=== PATIENT | female | born 2000 | race Caucasian/White ===

== ENCOUNTER 2019-12-02 18:05 | Observation (INO) | payer MEDICAID ==
[~2019-12-02] VITALS: Ht 167.6 cm; Wt 145.0 kg
[~2019-12-02 18:05] MED LIST: IBU600 MG PO; IBU800 M1 PO; IRON325 MG PO; MACROBID 1100 MG/CAP PO; NAPROXEN 3375 MG/TAB PO; NO HOME MEDICATIONS; OMNICEF 300MG300 MG PO; PRENATAL1 TA7 PO; ZOLOFT 100MG100 MG PO; ZOLOFT 50MG50 MG PO
[2019-12-02] MEDS ORDERED: PRENATAL TABLET PO (18:09)
[2019-12-02] MEDS ORDERED: ZOLOFT 50MG50 MG PO (18:09)
[2019-12-02 23:15] VITALS: BP 114/67; PULSE 78; TEMP 97.5
--- NOTE | 2019-12-02 23:15 | NUR ---
To room 349 via bed from PACU. Admission assessment complete. + movement. VS stable. Left upper extremity dressing-splint, gauze and kiki-CDI. Elevated on pillows. Clear liquid diet provided. Denies nausea/shortness of breath/pain. CMS intact. Plan of care discussed for this shift to inlcude pain control and calling for questions or concerns. Verbalizes understanding. Call light in reach. Will monitor.
[2019-12-02 23:30] VITALS: BP 110/69; PULSE 82
[2019-12-02 23:45] VITALS: BP 112/67; PULSE 79; TEMP 97.8
[2019-12-02 23:56] VITALS: BP 114/67; PULSE 68; TEMP 97.8
[2019-12-03] VITALS (7 sets, daily range): BP systolic 91–115; BP diastolic 43–67; PULSE 61–80; TEMP 97.8–98.4
--- NOTE | 2019-12-03 08:00 | NUR ---
PATIENT IS ORIENTED BUT DROWSY. VSS. DESCRIBES PAIN IN RUE MILD AT REST. RUE DRESSING IS CD&I WITH HARD-CAST/ACEWRAP. PATIENT IS ABLE TO MOVE FINGERS TO LUE AND HAS GOOD CMS. PATIENT IS 28 WEEKS AND REPORTS SHE WAS OPENING A BOX WITH A KNIFE WHEN SHE ACCIDENTLY CUT HER LEFT RADIAL ARTERY. PATIENT TO DISCHARGE HOME LATER THIS AM WITH F/U APT WITH . NO OTHER NEEDS. PATIENT SLEEPING.
--- NOTE | 2019-12-03 09:50 | NUR ---
PATIENT DISCHARGING HOME VIA AMBULATORY TO PERSONAL VEHICLE WITH SPOUCE. GAVE DISCHARGE INSTRUCTIONS, PRESCRIPTIONS & F/U APT. ANSWERED ALL QUESTIONS/CONCERNS. STUDENT NURSE DC'D IV SITE, COVERED WITH GAUZE & BANDAID. SENT PERSONAL BELONGINGS. PATIENT DISCHARGED.
== END 2019-12-03 09:50 | disposition home or self-care (01) ==
LOC: EDBD 18:05 → COL.ER 18:05 → SURG 23:18
PROVIDERS: ADMIT Plastic Surgery
DX: S65.112A Laceration of radial artery at wrist and hand level of left arm, initial encounter (principal); Z3A.28 28 weeks gestation of pregnancy; W26.0XXA Contact with knife, initial encounter; Y93.89 Activity, other specified; O99.343 Other mental disorders complicating pregnancy, third trimester; Z79.899 Other long term (current) drug therapy; O71.89 Other specified obstetric trauma
CPT/HCPCS: G0378; J0690; J1885; J2704; J3010; J7120

== ENCOUNTER 2020-01-25 04:18 | Outpatient (CLI) | payer MEDICAID ==
[~2020-01-25] VITALS: Ht 167.6 cm; Wt 75.0 kg
[~2020-01-25 04:18] MED LIST changes: +PRENATAL TABLET PO
--- NOTE | 2020-01-25 04:18 | NUR ---
0418- PT PRESENTS TO LDR COMPLAINING OF PELVIC AND BACK PAIN, AMBULATORY TO ROOM LR5, CHANGED INTO GOWN. 0429- EFM X2 APPLIED. PT DENIES CONTRACTIONS, LEAKING FLUID, VAGINAL BLEEDING. STATES SHE IS FEELING BABY MOVE AND IS HAVING CONSTANT BACK PAIN AND CRAMPING DOWN LOW IN HER PELVIS. PT STATES SHE IS UNCOMFORTABLE, BUT IS TALKING AND TEXTING ON HER PHONE CONSTANTLY WITH NO EXPRESSIONS OF PAIN. 0433- SVE BY THIS NURE . PLAN OF CARE DISCUSSED TO CALL DR WITH FURTHER ORDERS. PT QUESTIONS ANSWERED. 0515- DR HUNTER CALLED AND UPDATED ON PT HISTORY, COMPLAINTS, SVE, STRIP INTERPRETATION, AND PT COMFORT LEVEL. ORDERS RECEIVED FOR UA. AND DISMISS TO HOME IF UA IS OK. 0515- PT ASSISTED UP TO BATHROOM AND SHE PROVIDES A URINE SAMPLE. PLAN OF CARE DISCUSSED. 0610- PT UPDATED THAT UA LOOKS GOOD AND TAKEN OFF MONITORS FOR DISMISSAL. SHE IS STILL TEXTING ON PHONE AND IN NO APPARENT DISCOMFORT. 0630- DISMISSAL INSTRUCTIONS GIVEN. PT VERBALIZES UNDERSTANDING. PT DISMISSED TO HOME AMBULATORY BY SELF.
[2020-01-25 05:00] VITALS: BP 110/66; PULSE 86; TEMP 98.7
[2020-01-25 05:46] LABS: COLLECTION METHOD CLEAN CATCH
[2020-01-25 06:02] LABS: MUCOUS Present /lpf; PH 7 (5-8); SQUAMOUS EPITHELIAL 0-2 /hpf; URINE APPEARANCE Hazy; URINE BACTERIA None Seen /hpf; URINE BILIRUBIN Negative (NEGATIVE); URINE BLOOD Negative (NEGATIVE); URINE COLOR Yellow; URINE GLUCOSE Negative (NEGATIVE); URINE KETONE Negative (NEGATIVE); URINE LEUKOCYTE ESTERASE Negative (NEGATIVE); URINE NITRATE Negative (NEGATIVE); URINE PROTEIN(semi-quant) Negative (NEGATIVE); URINE RBC 0-2 /hpf; URINE UROBILINOGEN Negative (NEGATIVE); URINE WBC 0-2 /hpf
== END 2020-01-25 06:30 | disposition home or self-care (01) ==
LOC: LDRO 04:18
PROVIDERS: Obstetrics & Gynecology
DX: O26.893 Other specified pregnancy related conditions, third trimester (principal); Z3A.35 35 weeks gestation of pregnancy; M54.9 Dorsalgia, unspecified; R25.2 Cramp and spasm

== ENCOUNTER 2020-02-04 15:53 | Outpatient (CLI) | payer MEDICAID ==
[~2020-02-04] VITALS: Ht 167.6 cm; Wt 75.9 kg
--- NOTE | 2020-02-04 15:55 | NUR ---
Patient arrives ambulatory with complaints of decreased movement since this afternoon. Patient reports normal movement this morning. Denies contractions or vaginal bleeding. Patient changes into gown, EFM explained and placed. VS obtained. Assessment completed. 1610- Patient requests SVE. SVE unchanged from office. Reactive FHR strip obtained. 1628- Dr Archer notified via natural resource officer. Reviewed FHR strip and patient assessment. Orders to dc home.
[2020-02-04 16:02] VITALS: BP 117/74; PULSE 94; TEMP 98.5
[2020-02-04 16:30] VITALS: BP 117/74; PULSE 94; TEMP 98.5
--- NOTE | 2020-02-04 16:35 | NUR ---
Patient given dc insturctions. Reviewed labor precautions and kick counts. Denies questions. Has appt tomorrow. Leaves ambulatory with mother.
== END 2020-02-04 16:35 | disposition home or self-care (01) ==
LOC: LDRO 15:53 → LDR 15:55 → LDRO 16:35
DX: O36.8130 Decreased fetal movements, third trimester, not applicable or unspecified (principal); Z3A.37 37 weeks gestation of pregnancy
CPT/HCPCS: OP

== ENCOUNTER 2020-02-06 01:05 | Outpatient (CLI) | payer MEDICAID ==
[~2020-02-06] VITALS: Ht 167.6 cm; Wt 75.9 kg
--- NOTE | 2020-02-06 00:42 | NUR ---
0042- PT PRESENTS TO LDR COMPLAINING OF CONTRACTIONS, AMBULATORY TO ROOM LR6, CHANGED INTO GOWN. 0049- EFM X2 APPLIED, PT DENIES LEAKING FLUID OR VAGINAL BLEEDING. STATES SHE FEELS THE BABY MOVE AND HAS BEEN HAVING CONTRACTIONS SINCE HER OFFICE VISIT AND MEMBRANE STRIPPING. 0155- SVE BY THIS NURSE 2-2. PLAN OF CARE FOR LABOR ASSESSMENT DISCUSSED AND QUESTIONS ANSWERED. 0150- PT UP TO BATHROOM. 0155- PT BACK ON MONITORS. STATES HER CONTRACTIONS ARE ABOUT THE SAME. SVE BY THIS NURSE UNCHANGED. PLAN OF CARE DISCUSSED. 0202- DR ALFONSO CALLED AND UPDATED ON PT HISTORY, COMPLAINT, SVE UNCHANGED, VSS, STRIP INTERPRETATION. ORDER FOR DISMISSAL TO HOME. 0205- PT OFF MONITORS FOR DISMISSAL. 0215- DISMISSAL INSTRUCTIONS GIVEN, PT VERBALIZES UNDERSTANDING AND SIGNS PAPERWORK. DISMISSED TO HOME AMBULATORY ACCOMPANIED BY FAMILY MEMBER.
[2020-02-06 01:00] VITALS: BP 118/65; PULSE 85; TEMP 98.4
== END 2020-02-06 02:15 | disposition home or self-care (01) ==
LOC: LDRO 01:05
DX: O62.9 Abnormality of forces of labor, unspecified (principal); Z3A.37 37 weeks gestation of pregnancy

== ENCOUNTER 2020-02-16 11:33 | Outpatient (CLI) | payer MEDICAID ==
[~2020-02-16] VITALS: Ht 167.6 cm; Wt 77.7 kg
--- NOTE | 2020-02-16 11:40 | NUR ---
Pt arrives on unit with mother. States vaginal bleeding/spotting x2 days after sweeping of membranes. Denies LOF and reports GFM. Changed into clean gown. EFM and toco applied. VSS. SVE per this RN 3-4/70/-2 with pink/peach tinged discharge noted on glove. BOWI. Admission assessment completed. Dr. Dugan notified. See physician notification. Pt updated on POC. Bed locked in low position. Call light within reach. No questions or concerns at this time.
[2020-02-16 12:45] VITALS: BP 113/70; PULSE 83; TEMP 98.1
== END 2020-02-16 12:41 | disposition home or self-care (01) ==
LOC: LDR 11:33 → LDRO 11:33
DX: O46.93 Antepartum hemorrhage, unspecified, third trimester (principal); Z3A.38 38 weeks gestation of pregnancy
CPT/HCPCS: OP

== ENCOUNTER → 2020-02-19 | Outpatient (CLI) | payer MEDICAID ==
[~2020-02-19] MED LIST changes: +MOTRIN 800800 MG/TAB PO; +PERCOCET 325 MG1 TA2 PO
== END ==
LOC: COL.LAB 10:00
DX: Z20.828 Contact with and (suspected) exposure to other viral communicable diseases (principal)

== ENCOUNTER 2020-02-21 07:00 | Inpatient (IN) | payer MEDICAID ==
[~2020-02-21] VITALS: Ht 167.6 cm; Wt 77.7 kg
[2020-02-21] VITALS (40 sets, daily range): BP systolic 94–147; BP diastolic 55–87; PULSE 64–100; TEMP 97.8–98.4
--- NOTE | 2020-02-21 05:10 | NUR ---
Patient ambulatory to unit accompanied by spouse. Patient state that at 0445 SROM with clear fluid noted. FHR and contraction monitors placed and explained. Patient denies any covid symptoms or exposure. Was swabbed 2 days ago and notified it was negative. Patient denies any vaginal bleeding and baby has been active. SVE /1, clear fluid noted and amniotest positive.
[2020-02-21 06:14] LABS: BASO # 0.1 (0.0-0.2); BASO % 0.4 % (0.0-2.0); EOS # 0.1 (0.0-0.7); EOS % 0.9 % (0-4.0); GRAN # 9.7 (1.4-6.5); GRAN % 75.7 % (42.2-75.2); HEMATOCRIT 38.8 % (37.0-47.0); HEMOGLOBIN 12.7 g/dl (12.5-16.0); LYMPH # 1.8 (1.2-3.4); LYMPH % 14.2 % (20.0-51.0); MEAN CELL VOLUME 85 fl (80.0-100.0); MEAN CORPUSCULAR HEMOGLOBIN 28 pg (27.0-31.0); MEAN CORPUSCULAR HGB CONC 33 g/dl (33.0-37.0); MEAN PLATELET VOLUME 12.7 fl (7.4-10.4); MONO % 7.7 % (1.7-9.3); PLATELET COUNT 146 K/mm3 (130-400); RED BLOOD COUNT 4.59 M/mm3 (4.10-5.30); REDCELL DISTRIBUTION WIDTH-CV 14.8 % (11.5-14.5)
[~2020-02-21 07:00] MED LIST changes: -MOTRIN 800800 MG/TAB PO; -PERCOCET 325 MG1 TA2 PO
--- NOTE | 2020-02-21 07:15 | NUR ---
0709- RN AT BEDSIDE. PT REQUESTING BIRTHING BALL. ASSISTED PT TO BIRTHING BALL AT THE SIDE OF BED. EFM TRACING INTERMITTENTLY DUE TO MATERNAL POSITIONING. RN REMAINS AT BEDSIDE UNTIL EFM IS TRACING WELL. CALL LIGHT WITHIN REACH.
--- NOTE | 2020-02-21 07:30 | NUR ---
0720- EFM TRACING INTERMITTENTLY. RN AT BEDSIDE READJUSTING. AUDIBLE MOVEMENT NOTED DURING THIS TIME. RN REMAINS AT BEDSIDE UNTIL EFM IS TRACING WELL AGAIN. CALL LIGHT WITHIN REACH.
--- NOTE | 2020-02-21 08:25 | NUR ---
0825- RN AT BEDSIDE WITH PT. PROVIDER TO BEDSIDE. DISCUSSED PLAN AND QUESTIONS ANSWERED. 0830- HELPED PT. TO ROCKING CHAIR. CALL LIGHT WITHIN REACH.
--- NOTE | 2020-02-21 10:01 | NUR ---
0941- RN to bedside. Assisted pt. to the sitting position and got pt and room ready for epidural placement. RN remains at bedside. 0942- Maternal O2 Sat placed. EFM adjusted and tracing intermittently due to maternal positioning. RN remains at bedside. 0950- JIMENA Martinez at the bedside for epidural placement. Discussed procedure and answered questions. 1001- Test dose, see anesthesia record. 1008- Pt. repositioned in bed to WL. Pt. tolerated procedure well. RN remains at bedside. Vitals stable.
--- NOTE | 2020-02-21 12:42 | NUR ---
1234- RN AND PROVIDER TO BEDSIDE FOR SVE. 1235- COMPLETE, PER PROVIDER. PT AND ROOM SET UP FOR DELIVERY. 1240- PT BEGINS PUSHING WITH CONTRACTIONS. 1242- OF VIABLE MALE INFANT. PUT TO MOTHERS CHEST ONCE CRYING AND CORD CUT. NURSERY NURSE ASSUMES CARE AT THIS TIME. PITOCIN STOPPED. 1244- OF PLACENTA. REPAIR MADE, FUNDAS MASSAGED TO FIRM BY RN. PITOCIN STARTED AT 333ML/HR PER PROTOCOL. 1255- PT. CLEANED UP, NEW PAD AND ICE PACK TO PERINEUM. PT AND ROOM CLEANED UP. RECOVERY STARTED. NURSE REMAINS AT BEDSIDE. FUNDUS MASSAGED TO FIRM, SMALL CLOTS NOTED WITH MODERATE AMOUNT OF BLEEDING.
[2020-02-22 03:06] VITALS: BP 97/55; PULSE 69; TEMP 97.8
[2020-02-22] MEDS ORDERED: PERCOCET 325 MG1 TA2 PO (06:45)
[2020-02-22] MEDS ORDERED: MOTRIN 800800 MG/TAB PO (06:45)
[2020-02-22 08:25] VITALS: BP 105/77; PULSE 76; TEMP 97.5
== END 2020-02-22 14:50 | disposition home or self-care (01) | DRG 807 ==
LOC: OB 07:00 → LDR 07:00 → OB 09:51
PROVIDERS: ADMIT Obstetrics & Gynecology
PROC: 10E0XZZ Delivery of Products of Conception, External Approach (ICD-10-PCS; principal; 2020-02-21)
PROC: 0UQMXZZ Repair Vulva, External Approach (ICD-10-PCS; 2020-02-21)
DX: O43.123 Velamentous insertion of umbilical cord, third trimester (principal); Z37.0 Single live birth; O71.82 Other specified trauma to perineum and vulva; Z3A.39 39 weeks gestation of pregnancy
CPT/HCPCS: J2590; J7120

== ENCOUNTER 2020-06-16 11:03 | Emergency (ER) | payer MEDICAID ==
[~2020-06-16] VITALS: Ht 167.6 cm; Wt 68.2 kg
[~2020-06-16 11:03] MED LIST changes: +MOTRIN 800800 MG/TAB PO; +PERCOCET 325 MG1 TA2 PO
[2020-06-16 11:14] VITALS: BP 144/88
[2020-06-16] MEDS ORDERED: AMOXICILLIN 8751 TAB PO (12:39)
[2020-06-16 13:06] VITALS: PULSE 81
== END 2020-06-16 13:06 | disposition home or self-care (01) ==
LOC: COL.ER 11:03
DX: J06.9 Acute upper respiratory infection, unspecified (principal); H66.91 Otitis media, unspecified, right ear; F32.9 Major depressive disorder, single episode, unspecified; Z20.828 Contact with and (suspected) exposure to other viral communicable diseases; Z79.52 Long term (current) use of systemic steroids

== ENCOUNTER 2021-04-12 08:17 | Emergency (ER) | payer MEDICAID ==
[~2021-04-12] VITALS: Ht 167.6 cm; Wt 68.2 kg
[~2021-04-12 08:17] MED LIST changes: +AMOXICILLIN 8751 TAB PO
[2021-04-12 08:23] VITALS: BP 126/65; PULSE 76; TEMP 98.2
== END 2021-04-12 10:32 | disposition home or self-care (01) ==
LOC: COL.ER 08:17
DX: N93.9 Abnormal uterine and vaginal bleeding, unspecified (principal); Z32.02 Encounter for pregnancy test, result negative

== ENCOUNTER 2022-04-17 17:17 | Outpatient (CLI) | payer MEDICAID ==
[~2022-04-17] VITALS: Ht 167.6 cm; Wt 73.6 kg
--- NOTE | 2022-04-17 17:25 | NUR ---
Patient presents to labor and delivery. States feeling decreased movement for a little today. States using a dopler at home and heart rate went down. When ask what the heart rate was, says she didnt look. heart rate at 134s with accelerations noted with no decels.
[2022-04-17 17:30] VITALS: BP 111/68; PULSE 90; TEMP 99.1
[2022-04-17 18:00] VITALS: BP 118/67; PULSE 77
--- NOTE | 2022-04-17 18:15 | NUR ---
Discharge instructions given to patient. Verbalizes understanding. 182 Dismissed to home with mother, alert, ambulatory, stable.
== END 2022-04-17 18:15 | disposition home or self-care (01) ==
LOC: LDRO 17:17
DX: O36.8190 Decreased fetal movements, unspecified trimester, not applicable or unspecified (principal); Z3A.00 Weeks of gestation of pregnancy not specified

== ENCOUNTER 2024-03-22 16:29 | Emergency (ER) | payer SELFPAY ==
[~2024-03-22] VITALS: Ht 170.2 cm; Wt 58.6 kg
[~2024-03-22 16:29] MED LIST changes: +AMOXICILLIN 50500 MG PO; +PRENATAL
[2024-03-22 18:08] LABS: BASO % 0.4 % (0.0-2.0); EOS # 0.1 K/mm3 (0.0-0.7); EOS % 1.1 % (0.0-4.0); GRAN # 4.9 K/mm3 (1.4-6.5); GRAN % 66.3 % (42.2-75.2); HEMATOCRIT 41.3 % (37.0-47.0); HEMOGLOBIN 13.7 g/dl (12.5-16.0); LYMPH # 1.9 K/mm3 (1.2-3.4); LYMPH % 25.2 % (20.0-51.0); MEAN CELL VOLUME 86 fl (80.0-100.0); MEAN CORPUSCULAR HEMOGLOBIN 29 pg (27-31); MEAN CORPUSCULAR HGB CONC 33 g/dl (33.0-37.0); MEAN PLATELET VOLUME 11.6 fl (7.4-10.4); MONO # 0.5 K/mm3 (0.1-0.6); MONO % 6.9 % (1.7-9.3); PLATELET COUNT 253 K/mm3 (130-400); REDCELL DISTRIBUTION WIDTH-CV 12.1 % (11.5-14.5)
[2024-03-22 18:27] LABS: ALBUMIN 3.9 g/dL (3.5-5.0); BILIRUBIN,TOTAL 0.5 mg/dL (0.2-1.2); CALCIUM 10.3 mg/dL (8.4-10.2); CREATININE, serum 0.66 mg/dL (0.57-1.11); TOTAL PROTEIN 7.6 g/dl (6.2-8.1)
[2024-03-22 18:29] LABS: COLLECTION METHOD CLEAN CATCH
[2024-03-22 18:34] LABS: URINE APPEARANCE Cloudy (CLEAR/HAZY)
[2024-03-22 18:35] LABS: URINE BLOOD TRACE-INTACT (NEGATIVE); URINE COLOR YELLOW (YELLOW); URINE GLUCOSE Negative (NEGATIVE); URINE KETONE 1+ (NEGATIVE); URINE NITRATE Negative (NEGATIVE); URINE PROTEIN(semi-quant) TRACE (NEGATIVE)
[2024-03-22 18:50] LABS: POTASSIUM 2.9 mEq/L (3.5-4.5)
[2024-03-22] MEDS ORDERED: NORCO 325 MG-51 TAB PO (19:21)
[2024-03-22 19:26] LABS: URINE BACTERIA MANY /hpf (NONE SEEN)
[2024-03-22 19:41] VITALS: BP 120/82; PULSE 80; TEMP 98.1
[2024-03-22] MEDS ORDERED: CEPHALEXIN500 M1 PO (21:48)
== END 2024-03-22 19:41 | disposition home or self-care (01) ==
LOC: COL.ER 16:29
PROVIDERS: Physician Assistant
DX: O03.4 Incomplete spontaneous abortion without complication (principal); F17.200 Nicotine dependence, unspecified, uncomplicated

== ENCOUNTER 2024-04-14 01:03 | Emergency (ER) | payer MEDICAID ==
[~2024-04-14] VITALS: Ht 167.6 cm; Wt 59.1 kg
[~2024-04-14 01:03] MED LIST changes: +CEPHALEXIN500 M1 PO; +NORCO 325 MG-51 TAB PO
[2024-04-14 01:07] VITALS: BP 111/74; TEMP 98.4
[2024-04-14] MEDS ORDERED: AMOXICILLIN 8751 TAB PO (01:20)
[2024-04-14] MEDS ORDERED: Ibuprofen 400 MG TAB PO ONE (01:30)
[2024-04-14] MEDS ORDERED: Amoxicillin/Clavulanate K+ 875/125 MG TAB PO ONE (01:30)
[2024-04-14] MEDS ORDERED: Acetaminophen 325 MG TAB PO ONE (01:30)
[2024-04-14 01:38] VITALS: PULSE 97
== END 2024-04-14 01:38 | disposition home or self-care (01) ==
LOC: COL.ER 01:03
DX: S51.851A Open bite of right forearm, initial encounter (principal); W55.01XA Bitten by cat, initial encounter

== ENCOUNTER 2024-04-15 10:40 | Emergency (ER) | payer MEDICAID ==
[~2024-04-15] VITALS: Ht 167.6 cm; Wt 59.1 kg
[2024-04-15] MEDS ORDERED: Acetaminophen 500 MG TAB PO ONE (11:30)
[2024-04-15] MEDS ORDERED: NS 1,000 ML IV ONE (11:30)
[2024-04-15 11:49] LABS: COLLECTION METHOD CLEAN CATCH
[2024-04-15 11:56] LABS: BASO % 0.2 % (0.0-2.0); EOS % 0.3 % (0.0-4.0); GRAN # 9.2 K/mm3 (1.4-6.5); GRAN % 76.3 % (42.2-75.2); HEMATOCRIT 40.7 % (37.0-47.0); HEMOGLOBIN 13.4 g/dl (12.5-16.0); LYMPH # 1.4 K/mm3 (1.2-3.4); LYMPH % 11.6 % (20.0-51.0); MEAN CELL VOLUME 89 fl (80.0-100.0); MEAN CORPUSCULAR HEMOGLOBIN 29 pg (27-31); MEAN CORPUSCULAR HGB CONC 33 g/dl (33.0-37.0); MEAN PLATELET VOLUME 11.9 fl (7.4-10.4); MONO # 1.4 K/mm3 (0.1-0.6); MONO % 11.4 % (1.7-9.3); PLATELET COUNT 200 K/mm3 (130-400); RED BLOOD COUNT 4.59 M/mm3 (4.10-5.30); REDCELL DISTRIBUTION WIDTH-CV 13.6 % (11.5-14.5)
[2024-04-15 12:14] LABS: ALBUMIN 3.9 g/dL (3.5-5.0); BILIRUBIN,TOTAL 1.5 mg/dL (0.2-1.2); CALCIUM 9.4 mg/dL (8.4-10.2); CREATININE, serum 0.66 mg/dL (0.57-1.11); POTASSIUM 3.2 mEq/L (3.5-4.5); TOTAL PROTEIN 7.8 g/dl (6.2-8.1)
[2024-04-15 12:14] LABS: URINE APPEARANCE CLOUDY (CLEAR/HAZY); URINE BLOOD 3+ (NEGATIVE); URINE COLOR Dark Yellow (YELLOW); URINE GLUCOSE NEGATIVE (NEGATIVE); URINE KETONE 3+ (NEGATIVE); URINE NITRATE NEGATIVE (NEGATIVE); URINE PROTEIN(semi-quant) 1+ (NEGATIVE)
[2024-04-15 13:13] VITALS: TEMP 98.9
[2024-04-15] MEDS ORDERED: cefTRIAXone 1 G in Water For Injection,Sterile 10 ML IV ONE (13:15)
[2024-04-15 13:26] VITALS: BP 112/77; PULSE 106
== END 2024-04-15 13:33 | disposition home or self-care (01) ==
LOC: COL.ER 10:40
PROVIDERS: Physician Assistant
DX: O03.4 Incomplete spontaneous abortion without complication (principal); N39.0 Urinary tract infection, site not specified
CPT/HCPCS: J0696; J7030